=== PATIENT | male | born 1970 | race Caucasian/White ===

== ENCOUNTER 2020-10-24 06:10 | Day surgery (SDC) | payer MEDICAID ==
[~2020-10-24] VITALS: Ht 185.4 cm; Wt 74.1 kg
[2020-10-24] VITALS (11 sets, daily range): BP systolic 94–115; BP diastolic 57–74
[~2020-10-24 06:10] MED LIST: ALBU8HFA PO; CHLO25CA10 PO; GUAI120L55 PO; OMEP40CA PO; ONDA4TAB6 PO
[2020-10-24] MEDS ORDERED: normal saline 1000ml 1,000 ML IV PRN (06:30)
[2020-10-24] MEDS ORDERED: FERR325T32 PO (06:44)
[2020-10-24] MEDS ORDERED: THIA100T66 PO (06:44)
[2020-10-24] MEDS ORDERED: MAGN400T28 PO (06:44)
[2020-10-24] MEDS ORDERED: SERT-433 PO (06:44)
[2020-10-24] MEDS ORDERED: CHOL20002 PO (06:44)
[2020-10-24] MEDS ORDERED: HYDR-3686 (06:44)
[2020-10-24] MEDS ORDERED: FURO20TA4 PO (06:44)
[2020-10-24] MEDS ORDERED: SPIR50TA5 PO (06:44)
[2020-10-24] MEDS ORDERED: LACT10SO67 PO (06:44)
[2020-10-24] MEDS: albumin 25% 100mL bottle x 1 IV PRN ×2 (09:18→10:13)
== END 2020-10-24 10:55 | disposition home or self-care (01) ==
LOC: SSTAY O 06:10
PROVIDERS: ATTEND Radiology Vascular & Interventional Radiology
DX: R18.8 Other ascites (principal); K74.60 Unspecified cirrhosis of liver; Z72.89 Other problems related to lifestyle; Z88.8 Allergy status to other drugs, medicaments and biological substances; Z98.890 Other specified postprocedural states; Z79.899 Other long term (current) drug therapy
CPT/HCPCS: 49083; P9047

== ENCOUNTER 2020-11-06 06:43 | Day surgery (SDC) | payer MEDICAID ==
[~2020-11-06] VITALS: Ht 185.4 cm; Wt 73.0 kg
[2020-11-06] VITALS (10 sets, daily range): BP systolic 99–107; BP diastolic 67–70
[~2020-11-06 06:43] MED LIST changes: -ALBU8HFA PO; +CHOL20002 PO; +FERR325T32 PO; +FURO20TA4 PO; -GUAI120L55 PO; +HYDR-3686; +LACT10SO67 PO; +MAGN400T28 PO; -OMEP40CA PO; -ONDA4TAB6 PO; +SERT-433 PO; +SPIR50TA5 PO; +THIA100T66 PO
[2020-11-06] MEDS ORDERED: albumin 25% 100mL bottle x 1 IV PRN (07:00)
[2020-11-06] MEDS ORDERED: normal saline 1000ml 1,000 ML IV PRN (07:00)
== END 2020-11-06 10:10 | disposition home or self-care (01) ==
LOC: SSTAY O 06:43
PROVIDERS: ATTEND Radiology Vascular & Interventional Radiology
DX: K70.31 Alcoholic cirrhosis of liver with ascites (principal); F10.10 Alcohol abuse, uncomplicated; Z86.010 Personal history of colon polyps; Z98.890 Other specified postprocedural states; Z72.89 Other problems related to lifestyle
CPT/HCPCS: 49083; P9047

== ENCOUNTER 2020-11-20 07:06 | Day surgery (SDC) | payer MEDICAID ==
[~2020-11-20] VITALS: Ht 185.4 cm; Wt 70.5 kg
[~2020-11-20 07:06] MED LIST changes: -CHLO25CA10 PO
[2020-11-20] MEDS ORDERED: normal saline 1000ml 1,000 ML IV PRN (07:25)
[2020-11-20] MEDS ORDERED: albumin 25% 100mL bottle x 1 IV PRN (07:25)
[2020-11-20 08:07] VITALS: BP 133/70
== END 2020-11-20 08:45 | disposition home or self-care (01) ==
LOC: SSTAY O 07:06
PROVIDERS: ATTEND Radiology Diagnostic Radiology
DX: K70.31 Alcoholic cirrhosis of liver with ascites (principal); Z53.8 Procedure and treatment not carried out for other reasons; F10.10 Alcohol abuse, uncomplicated; Z86.010 Personal history of colon polyps; Z98.890 Other specified postprocedural states
CPT/HCPCS: 76705

== ENCOUNTER 2020-12-04 07:14 | Day surgery (SDC) | payer MEDICAID ==
[~2020-12-04] VITALS: Ht 185.4 cm; Wt 71.0 kg
[2020-12-04] VITALS (7 sets, daily range): BP systolic 102–108; BP diastolic 60–76
[2020-12-04] MEDS ORDERED: NO HOME MEDS (07:31)
[2020-12-04] MEDS ORDERED: albumin 25% 100mL bottle x 1 IV PRN (07:35)
--- NOTE | 2020-12-04 09:52 | NUR ---
Pt refused Albumin as ordered. Pt informed of all risks of not taking Albumin as ordered. Pt still refused being aware of risks. Addendum: 12/04/20 at 1109 by Lalo Cesar RN Amended: Links added.
== END 2020-12-04 10:10 | disposition home or self-care (01) ==
LOC: SSTAY O 07:14
PROVIDERS: ATTEND Radiology Diagnostic Radiology
DX: K70.31 Alcoholic cirrhosis of liver with ascites (principal); Z86.010 Personal history of colon polyps; F10.10 Alcohol abuse, uncomplicated; Z72.89 Other problems related to lifestyle; Z98.890 Other specified postprocedural states
CPT/HCPCS: 49083

== ENCOUNTER 2021-06-13 14:06 | Outpatient (CLI) | payer MEDICAID ==
[~2021-06-13 14:06] MED LIST changes: -CHOL20002 PO; -FERR325T32 PO; -FURO20TA4 PO; -HYDR-3686; -LACT10SO67 PO; -MAGN400T28 PO; +NO HOME MEDS; -SERT-433 PO; -SPIR50TA5 PO; -THIA100T66 PO
== END 2021-06-13 23:59 | disposition home or self-care (01) ==
LOC: RAD 14:06
PROVIDERS: ATTEND Nurse Practitioner Family
DX: R13.14 Dysphagia, pharyngoesophageal phase (principal); K21.9 Gastro-esophageal reflux disease without esophagitis; J39.2 Other diseases of pharynx; F17.210 Nicotine dependence, cigarettes, uncomplicated; F17.220 Nicotine dependence, chewing tobacco, uncomplicated; Z79.899 Other long term (current) drug therapy
CPT/HCPCS: 74230